=== PATIENT | male | born 1945 | race Caucasian/White ===

== ENCOUNTER 2021-03-23 14:15 | Emergency (ER) | payer OTHER ==
--- NOTE | 2021-03-23 15:05 | ED Physician Documentation ---
PD HPI HEAD INJURY - Stated complaint Stated Complaint: HEAD INJURY - Chief complaint Chief Complaint: Trauma Hd/Nk - History obtained from History obtained from: Patient - Additional information Additional information: Patient comes emergency department chief complaint of headache and neck pain after taking a fall 3 nights ago and hitting his head. He states he was walking through his yard at night when he tripped over a mcmillan and fell, striking his head on a pipe that holds a hose rack and then bounced back and hit the back of his head on the wall of his house. Patient states he did not lose consciousness but felt dizzy for about 5 minutes and had to sit on the ground during that time before he felt he could not stand up. Patient denies any neurologic deficits, Other than left eye blurred vision. The patient states that he had a cataract surgery done in the area of [place], [place], from which he just moved 2 weeks ago. The cataract surgery was approximately a month ago. He states that he does not know if something is gone wrong with the new lens in his left eye. He denies hitting his eye, And has not had any pain or discomfort otherwise in the eye. No other complaints at this time. Review of Systems Ten Systems: 10 systems reviewed and negative Constitutional: reports: Reviewed and negative Eyes: reports: Decreased vision Ears: reports: Reviewed and negative Nose: reports: Reviewed and negative Throat: reports: Reviewed and negative Cardiac: reports: Reviewed and negative Respiratory: reports: Reviewed and negative GI: reports: Reviewed and negative : reports: Reviewed and negative Skin: reports: Reviewed and negative Musculoskeletal: reports: Neck pain Neurologic: reports: Headache, Head injury. denies: LOC Psychiatric: reports: Reviewed and negative Endocrine: reports: Reviewed and negative Immunocompromised: reports: Reviewed and negative PD PAST MEDICAL HISTORY - Allergies Allergies/Adverse Reactions: Allergies Allergy/AdvReac Type Severity Reaction Status Date / Time Sulfa (Sulfonamide Allergy Unknown Verified 03/23/21 14:22 Antibiotics) PD ED PE NORMAL - Vitals Vital signs reviewed: Yes - General General: Alert and oriented X 3, No acute distress, Well developed/nourished - HEENT HEENT: PERRL, EOMI, Moist mucous membranes, Other (Tiny abrasion right superior forehead; otherwise atraumatic; Fluorescein exam is negative. No conjunctival injection or hyphema noted. No eyelid contusion or swelling.) - Neck Neck: Supple, no meningeal sign, No bony TTP, Other (No muscular tenderness.) - Cardiac Cardiac: RRR, No murmur, Strong equal pulses - Respiratory Respiratory: No respiratory distress, Clear bilaterally - Abdomen Abdomen: Soft, Non tender, Non distended - Derm Derm: Normal color, Warm and dry, No rash - Extremities Extremities: No deformity, No edema, No calf tenderness / cord - Neuro Neuro: Alert and oriented X 3, No motor deficit, No sensory deficit, Normal speech, Other (Cranial nerves II through XII are intact with the exception of some blurred vision in the left eye) - Psych Psych: Normal mood, Normal affect Results - Vitals Vitals: Vital Signs - 24 hr 03/23/21 14:22 Temperature 36.3 C L Heart Rate 80 Respiratory 18 Rate Blood Pressure 133/74 H O2 Saturation 100 Oxygen O2 Source Room air - Rads (name of study) CT head Radiology: Final report received, EMP read indepedently, See rad report (NAD) CT C-spine Radiology: Final report received, EMP read indepedently, See rad report (NAD) PD MEDICAL DECISION MAKING - ED course Complexity details: reviewed results, re-evaluated patient, considered differential, d/w patient ED course: I could not find any discernible abnormality of the patient's left eye. He was sent for CT scans of the head and neck. Departure - Departure Disposition: 01 Home, Self Care Clinical Impression: Blurred vision, left eye Closed head injury Qualifiers: Encounter type: initial encounter Qualified Code(s): S09.90XA - Unspecified injury of head, initial encounter Neck strain Qualifiers: Encounter type: initial encounter Qualified Code(s): S16.1XXA - Strain of muscle, fascia and tendon at neck level, initial encounter Condition: Stable Instructions: ED Head Injury Closed, ED Sprain Strain Neck, ED Blurred Vision Follow-Up: Keith Pierre MD [Provider Admit Priv/Credential] - Comments: Your CT scans look good. Your eye exam does not show any abnormalities, but it is very important that you call the eye clinic first thing in the morning to follow-up with an it infrastructure specialist to have your cataract surgery site checked.
--- NOTE | 2021-03-23 16:00 | CT Report ---
PROCEDURE: HEAD WO INDICATIONS: Fall, pain TECHNIQUE: Noncontrast 4.5 mm thick angled axial sections acquired from the foramen magnum to the vertex. For r adiation dose reduction, the following was used: automated exposure control, adjustment of mA and/or kV according to patient size. COMPARISON: None. FINDINGS: Image quality: Excellent. CSF spaces: Basal cisterns are patent. No extra-axial fluid collections. Ventricles are normal in size and shape. Brain: No midline shift. No intracranial masses or hemorrhage. Vang-white matter interface is norm al. Global cerebral volume loss and chronic microvascular ischemic changes. Skull and face: Calvarium and visualized facial bones are intact, without suspicious lesions. Sinuses: Visualized sinuses and mastoids are clear. IMPRESSION: No acute intracranial abnormality. Reviewed by: Eddie Ro MD on 03/23/2021 2:59 PM [facility] Approved by: Eddie Ro MD on 03/23/2021 2:59 PM [facility] Station ID: [id number]
--- NOTE | 2021-03-23 16:06 | CT Report ---
PROCEDURE: CERVICAL SPINE WO INDICATIONS: fall/pain TECHNIQUE: Noncontrast 3 mm thick sections acquired from the skull base to the T4 level. Sagittal and coronal r eformats were then constructed. For radiation dose reduction, the following was used: automated exp osure control, adjustment of mA and/or kV according to patient size. COMPARISON: None. FINDINGS: Postsurgical changes of C5 corpectomy and strut graft placement with ACDF from C4 through C6. Hardwar e appears intact with no abnormal lucency surrounding the hardware. Straightening of usual cervical l ordosis. No listhesis. Vertebral body heights are maintained. No evidence of cervical spine fracture. Facets are congruent without subluxation or dislocation. Prevertebral and paraspinous soft tissues a re normal. IMPRESSION: No CT evidence of acute or metastatic cervical spine injury. Reviewed by: Eddie Ro MD on 03/23/2021 3:05 PM [facility] Approved by: Eddie Ro MD on 03/23/2021 3:05 PM [facility] Station ID: [id number]
[2021-03-23 16:25] VITALS: BP 110/59
== END 2021-03-23 16:25 | disposition home or self-care (01) ==
LOC: ED 14:15
DX: S09.90XA Unspecified injury of head, initial encounter (principal); S16.1XXA Strain of muscle, fascia and tendon at neck level, initial encounter; S00.81XA Abrasion of other part of head, initial encounter; H53.8 Other visual disturbances; W01.198A Fall on same level from slipping, tripping and stumbling with subsequent striking against other object, initial encounter; Y93.01 Activity, walking, marching and hiking; Y92.007 Garden or yard of unspecified non-institutional (private) residence as the place of occurrence of the external cause
CPT/HCPCS: 99282; 99284

== ENCOUNTER 2021-06-21 21:08 | Outpatient (CLI) | payer OTHER | END 2021-06-21 21:09 | disposition critical access hospital (66) | LOC: EMS 21:08 | DX: S01.81XA Laceration without foreign body of other part of head, initial encounter (principal); W01.0XXA Fall on same level from slipping, tripping and stumbling without subsequent striking against object, initial encounter; Y92.481 Parking lot as the place of occurrence of the external cause | CPT/HCPCS: A0425; A0429 ==

== ENCOUNTER 2021-06-21 21:32 | Emergency (ER) | payer OTHER ==
--- NOTE | 2021-06-21 23:04 | CT Report ---
PROCEDURE: CERVICAL SPINE WO INDICATIONS: fall, head/face/neck pain TECHNIQUE: Noncontrast 3 mm thick sections acquired from the skull base to the T4 level. Sagittal and coronal r eformats were then constructed. For radiation dose reduction, the following was used: automated exp osure control, adjustment of mA and/or kV according to patient size. COMPARISON: None. FINDINGS: Image quality: Excellent. Bones: No fractures or dislocations. Anterior fusion hardware at C4-C6. Visualized superior ribs ar e intact. Soft tissues: Prevertebral soft tissues are normal in thickness. No paravertebral hematomas. No ap ical pneumothoraces. IMPRESSION: No fracture. Reviewed by: Keyonna Mason MD on 06/21/2021 11:03 PM [facility] Approved by: Keyonna Mason MD on 06/21/2021 11:03 PM [facility] Station ID: [id number]
--- NOTE | 2021-06-21 23:04 | CT Report ---
PROCEDURE: HEAD WO INDICATIONS: fall, head/face/neck pain TECHNIQUE: Noncontrast 4.5 mm thick angled axial sections acquired from the foramen magnum to the vertex. For r adiation dose reduction, the following was used: automated exposure control, adjustment of mA and/or kV according to patient size. COMPARISON: None. FINDINGS: Image quality: Excellent. CSF spaces: Basal cisterns are patent. No extra-axial fluid collections. Ventricles are normal in size and shape. Brain: No midline shift. No intracranial masses or hemorrhage. Vang-white matter interface is norm al. Skull and face: Calvarium and visualized facial bones are intact, without suspicious lesions. Sinuses: Visualized sinuses and mastoids are clear. IMPRESSION: No acute intracranial abnormality. Reviewed by: Keyonna Mason MD on 06/21/2021 11:02 PM PST Approved by: Keyonna Mason MD on 06/21/2021 11:02 PM PST Station ID: [id number]
--- NOTE | 2021-06-21 23:05 | CT Report ---
PROCEDURE: MAXILLOFACIAL WO INDICATIONS: fall, head/face/neck pain TECHNIQUE: Noncontrast 1.5 mm thick axial images acquired from the mandible through the frontal sinuses, with co alice and sagittal reformatting. For radiation dose reduction, the following was used: automated ex posure control, adjustment of mA and/or kV according to patient size. COMPARISON: None. FINDINGS: Image quality: Excellent. Bones and teeth: Orbital freire are intact. Sinus freire show no fracture or deformity. Nasal bones and septum are intact. Visualized portions of the mandible demonstrate no fractures or subluxation. Zygomatic arches are intact. Pterygoid plates are intact. Visualized portions of the skull base an d auditory canals are intact. Sinuses: Paranasal sinuses are aerated, without fluid levels, mucosal thickening, or mucoceles. Mas toid air cells are aerated. Soft tissues: No edema, masses, or fluid collections. No enlarged lymph nodes. No soft tissue lace rations or debris. Vascular: Visualized vascular structures appear normal in the absence of contrast. Bony vascular fo ramina and canals are intact. IMPRESSION: No fracture. Reviewed by: Keyonna Mason MD on 06/21/2021 11:04 PM [facility] Approved by: Keyonna Mason MD on 06/21/2021 11:04 PM [facility] Station ID: [id number]
--- NOTE | 2021-06-22 00:07 | ED Physician Documentation ---
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 No: LOC, AMS, Amnesia, Nausea / vomiting Contributing factors: No: Anticoagulated, Intoxicated Similar symptoms before: Has not had sx before Recently seen: Not recently seen - Additional information Additional information: patient was walking to his car in a dark parking lot, tripped going down a stair due to poor lighting, causing him to fall forward. struck head on ground. he denies LOC, c/o headache and neck pain, sustained forehead laceration. He says he is up to date on tetanus immunization Review of Systems Eyes: reports: Reviewed and negative Ears: reports: Reviewed and negative Cardiac: reports: Reviewed and negative Respiratory: reports: Reviewed and negative GI: reports: Reviewed and negative Skin: reports: Laceration (s) Musculoskeletal: reports: Neck pain. denies: Back pain, Extremity pain, Joint pain, Extremity swelling, Joint swelling, Pain with weight bearing Neurologic: reports: Headache, Head injury. denies: Generalized weakness, Focal weakness, Numbness, Altered mental status, LOC PD PAST MEDICAL HISTORY - Past Medical History Past Medical History: Yes Cardiovascular: High cholesterol, [place] Endocrine/Autoimmune: Type 2 diabetes GI: GERD HEENT: Chronic vision loss, Other Psych: Depression Musculoskeletal: Osteoarthritis - Past Surgical History Past Surgical History: Yes Ortho: Knee replacement Cardiovascular: CABG, Coronary stent HEENT: Cataracts - Present Medications Home Medications: Ambulatory Orders Medication Instructions Recorded Confirmed Home Medications Unobtainable 06/21/21 06/21/21 [HOME MEDICATIONS UNOBTAINABLE] - Allergies Allergies/Adverse Reactions: Allergies Allergy/AdvReac Type Severity Reaction Status Date / Time Sulfa (Sulfonamide Allergy Unknown Verified 06/21/21 21:37 Antibiotics) - Social History Does the pt smoke?: No Smoking Status: Never smoker Does the pt drink ETOH?: No Does the pt have substance abuse?: No - Immunizations Immunizations are current?: Yes PD ED PE NORMAL - Vitals Vital signs reviewed: Yes - General General: Alert and oriented X 3, No acute distress, Well developed/nourished - HEENT HEENT: PERRL, EOMI - Cardiac Cardiac: RRR, No murmur - Respiratory Respiratory: No respiratory distress, Clear bilaterally - Abdomen Abdomen: Soft, Non tender - Extremities Extremities: No deformity, No tenderness to palpate, Normal ROM s pain - Neuro Neuro: Alert and oriented X 3, guest 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, No motor deficit, No sensory deficit, Normal speech Eye Opening: Spontaneous Motor: Obeys Commands Verbal: Oriented GCS Score: 15 PD ED PE EXPANDED - HEENT HEENT Visual: 1 - laceration (1 cm laceration with surrounding swelling, TTP) Results - Vitals Vitals: Vital Signs - 24 hr 06/21/21 06/21/21 06/22/21 21:37 23:33 01:00 Temperature 36.2 C L Heart Rate 78 79 80 Respiratory 15 15 16 Rate Blood Pressure 132/77 H 142/77 H 166/81 H O2 Saturation 97 97 98 06/22/21 02:19 Temperature 36.3 C L Heart Rate 72 Respiratory 16 Rate Blood Pressure 144/79 H O2 Saturation 99 Oxygen O2 Source Room air - Rads (name of study) CT head Radiology: Prelim report reviewed, See rad report CT cervical spine Radiology: Prelim report reviewed, See rad report CT facial bones Radiology: Prelim report reviewed, See rad report Procedures - Laceration (location) Scalp left Length in cm: 1 Wound type: Linear, Into subcut fat, Clean Anesthesia: Lidocaine 1% Wound preparation: Chlorhexadine, Irrigated copiously NS, Wound explored Skin layer closure: Nylon, Interrupted, Size #-0 - enter number (4-0), Sutures - enter # (2) Other: Patient tolerated well, No complications, Neurovascular intact, Tetanus UTD PD MEDICAL DECISION MAKING - ED course Complexity details: reviewed results, re-evaluated patient, considered different ial, d/w patient ED course: after result of CT cervical spine available, I removed cervical collar at 00:07. Departure - Departure Disposition: 01 Home, Self Care Clinical Impression: Fall Qualifiers: Encounter type: initial encounter Qualified Code(s): W19.XXXA - Unspecified fall, initial encounter Scalp laceration Qualifiers: Encounter type: initial encounter Qualified Code(s): S01.01XA - Laceration without foreign body of scalp, initial encounter Condition: Good Instructions: ED Head Injury Closed, ED Laceration Scalp Stitch Or Stap Follow-Up: SHEILA HYMAN MD [Primary Care Provider] - Comments: Follow up with your primary care provider in one week for removal of the stitches. TWO stitches were placed in the laceration of your scalp/forehead. Discharge Date/Time: 06/22/21 02:19
[2021-06-22] MEDS ORDERED: LIDOCAINE 2% 10 ML MDV SUBQ ONE (00:11)
[2021-06-22] MEDS ORDERED: lidocaine 1% 20 ML MDV SUBQ STA (00:15)
[2021-06-22] MEDS ORDERED: BACITRACIN ZINC OINT 1 PACKET TOP STA (01:59)
[2021-06-22 02:20] VITALS: BP 144/79
== END 2021-06-22 02:19 | disposition home or self-care (01) ==
LOC: EDUNIT# → EDBD → ED 21:32
DX: S01.01XA Laceration without foreign body of scalp, initial encounter (principal); W10.8XXA Fall (on) (from) other stairs and steps, initial encounter; Y93.01 Activity, walking, marching and hiking; Y92.481 Parking lot as the place of occurrence of the external cause
CPT/HCPCS: 12001; 99282; 99284

== ENCOUNTER 2022-02-11 11:58 | Emergency (ER) | payer OTHER ==
[2022-02-11] MEDS ORDERED: KETOROLAC 30 MG/ML VIAL IVP STA (12:13)
[2022-02-11] MEDS ORDERED: HYDROmorphone 1 MG/ML CARPUJECT IVP STA (12:13)
[2022-02-11] MEDS ORDERED: ONDANSETRON 4 MG/2 ML VIAL IVP STA (12:13)
[2022-02-11 12:15] LABS: BASOPHILS # (AUTO) 0.1 10^3/uL (0.0-0.1); BASOPHILS % (AUTO) 0.4 %; EOSINOPHILS # (AUTO) 0.1 10^3/uL (0.0-0.7); HCT - HEMATOCRIT 42.9 % (42.0-52.0); HGB - HEMOGLOBIN 13.7 g/dL (14.0-18.0); LYMPHOCYTES # (AUTO) 1.7 10^3/uL (1.5-3.5); LYMPHOCYTES % (AUTO) 11.3 %; MEAN CORPUSCULAR HEMOGLOBIN 28.9 pg (27.0-31.0); MEAN CORPUSCULAR HGB CONC 31.9 g/dL (32.0-36.0); MEAN CORPUSCULAR VOLUME 90.5 fL (80.0-94.0); MEAN PLATELET VOLUME 10.2 fL (7.4-11.4); MONOCYTES # (AUTO) 1.2 10^3/uL (0.0-1.0); MONOCYTES % (AUTO) 8.1 %; NEUTROPHILS # (AUTO) 11.5 10^3/uL (1.5-6.6); NEUTROPHILS % (AUTO) 78.7 %; PLT - PLATELET COUNT 564 10^3/uL (130-450); RED BLOOD COUNT 4.74 10^6/uL (4.70-6.10); RED CELL DISTRIBUTION WIDTH 14.9 % (12.0-15.0); WHITE BLOOD COUNT 14.6 x10^3/uL (4.8-10.8)
--- NOTE | 2022-02-11 12:15 | ED Physician Documentation ---
PD HPI ABD PAIN - Stated complaint Stated Complaint: RT SIDE PX - Chief complaint Chief Complaint: Abd Pain - History obtained from History obtained from: Patient - History of Present Illness Timing - onset: How many hours ago (4) Timing - duration: Hours (4) Timing - details: Abrupt onset Pain level max: 9 Pain level now: 8 Quality: Sharp, Pain Location: RLQ. No: All over / everywhere, RUQ, Epigastric, LUQ, Periumbilical Radiation: Right flank Improved by: No: Eating, Laying still, Vomiting, BM, Position, Meds Worsened by: No: Eating, Moving, Breathing, Position, Palpation Associated symptoms: No: Fever, Nausea, Vomiting, Hematemesis, Diarrhea, Constipation, Melena, Hematochezia, Dysuria, Hematuria - Additional information Additional information: Patient is a 76-year-old male who presents to the emergency department with right flank pain that started this morning at 8 AM. He states that it woke him up out of sleep. Does have a history of kidney stones. He states that this pain is sharp. Nothing seems to make it better or worse. He took Tylenol without relief. He has nausea but no vomiting. No diarrhea. No constipation. No fevers. No chills. No urinary symptoms. Review of Systems Ten Systems: 10 systems reviewed and negative Constitutional: denies: Fever, Chills Respiratory: denies: Cough GI: denies: Vomiting, Diarrhea, Hematemesis, Bloody / black stool : denies: Dysuria, Hematuria Skin: denies: Rash Musculoskeletal: denies: Neck pain, Back pain Neurologic: denies: Headache PD PAST MEDICAL HISTORY - Past Medical History Past Medical History: Yes Cardiovascular: High cholesterol, [place] Endocrine/Autoimmune: Type 2 diabetes GI: GERD HEENT: Chronic vision loss, Other Psych: Depression Musculoskeletal: Osteoarthritis - Past Surgical History Past Surgical History: Yes Ortho: Knee replacement Cardiovascular: CABG, Coronary stent HEENT: Cataracts - Present Medications Home Medications: Ambulatory Orders Medication Instructions Recorded Confirmed Ondansetron Odt [Zofran] 4 mg TL Q6H PRN #10 tablet 02/11/22 Oxycodone HCl/Acetaminophen 1 - 2 each PO Q6H PRN #20 tablet 02/11/22 [Percocet 5-325 mg Tablet] Tamsulosin [Flomax] 0.4 mg PO DAILY #14 cap 02/11/22 - Allergies Allergies/Adverse Reactions: Allergies Allergy/AdvReac Type Severity Reaction Status Date / Time Sulfa (Sulfonamide Allergy Unknown Verified 02/11/22 12:05 Antibiotics) - Social History Does the pt smoke?: No Smoking Status: Never smoker Does the pt drink ETOH?: No Does the pt have substance abuse?: No - Immunizations Immunizations are current?: Yes PD ED PE NORMAL - Vitals Vital signs reviewed: Yes - General General: Alert and oriented X 3, No acute distress - HEENT HEENT: PERRL, Moist mucous membranes - Neck Neck: Supple, no meningeal sign - Cardiac Cardiac: RRR - Respiratory Respiratory: No respiratory distress, Clear bilaterally - Abdomen Abdomen: Soft, Non tender, Non distended - Back Back: No spinal TTP, Other (Mild right flank tenderness. Mild right CVA tenderness.) - Derm Derm: Warm and dry - Extremities Extremities: No edema, No calf tenderness / cord - Neuro Neuro: Alert and oriented X 3 - Psych Psych: Normal mood, Normal affect Results - Vitals Vitals: Vital Signs - 24 hr 02/11/22 02/11/22 02/11/22 12:02 12:04 14:04 Temperature 36.7 C 36.7 C 36.5 C Heart Rate 94 94 76 Respiratory 16 16 16 Rate Blood Pressure 147/77 H 147/77 H 130/74 O2 Saturation 98 98 100 Oxygen O2 Source Room air - Labs Labs: Laboratory Tests 02/11/22 02/11/22 02/11/22 12:11 12:11 13:41 WBC 14.6 H RBC 4.74 Hgb 13.7 L Hct 42.9 MCV 90.5 MCH 28.9 MCHC 31.9 L RDW 14.9 Plt Count 564 H MPV 10.2 Neut # (Auto) 11.5 H Lymph # (Auto) 1.7 Edmunds # (Auto) 1.2 H Eos # (Auto) 0.1 Baso # (Auto) 0.1 Absolute Nucleated RBC 0.00 Nucleated RBC % 0.0 Sodium 140 Potassium 4.9 Chloride 104 Carbon Dioxide 27 Anion Gap 9.0 BUN 31 H Creatinine 2.2 H Estimated GFR (MDRD) 29 L Glucose 253 H Calcium 9.6 Total Bilirubin 0.7 AST 17 ALT 18 Alkaline Phosphatase 80 Total Protein 7.8 Albumin 4.3 Globulin 3.5 Albumin/Globulin Ratio 1.2 Lipase 41 Urine Color YELLOW Urine Clarity CLEAR Urine pH 6.0 Ur Specific Rog[place] 1.020 Urine Protein TRACE Urine Glucose (UA) 500 H Urine Ketones NEGATIVE Urine Occult Blood NEGATIVE Urine Nitrite NEGATIVE Urine Bilirubin NEGATIVE Urine Urobilinogen 0.2 (NORMAL) Ur Leukocyte Esterase NEGATIVE Ur Microscopic Review NOT INDICATED Urine Culture Comments NOT INDICATED - Rads (name of study) CT abdomen pelvis Radiology: Final report received, EMP read contemporaneously, See rad report PD MEDICAL DECISION MAKING - ED course Complexity details: reviewed results, re-evaluated patient, considered differential, d/w patient, d/w family ED course: Patient is a 76-year-old male who presents with right-sided flank pain. Has a 9 mm right ureteral stone. Pain well controlled. No fevers. No evidence of infection. No nausea or vomiting. Will place on pain medication for home and have him follow-up with urology. Patient will return if he worsens. Patient counseled regarding signs and symptoms for which I believe and urgent re- evaluation would be necessary. Patient with good understanding of and agreement to plan and is comfortable going home at this time This document was made in part using voice recognition software. While efforts are made to proofread this document, sound alike and grammatical errors may occur. Departure - Departure Disposition: 01 Home, Self Care Clinical Impression: Ureteral stone Condition: Good Instructions: ED Stone Renal W Colic Follow-Up: SHEILA HYMAN MD [Primary Care Provider] - Criselda Davison MD [Provider Admit Priv/Credential] - Scott Kiran MD [Physician No Access] - SAVANNAH ORNELAS [Physician No Access] - ISHA SHARMA MD [Physician No Access] - Prescriptions: Tamsulosin [Flomax] 0.4 mg PO DAILY #14 cap Oxycodone HCl/Acetaminophen [Percocet 5-325 mg Tablet] 1 - 2 each PO Q6H PRN #20 tablet PRN Reason: pain Ondansetron Odt [Zofran] 4 mg TL Q6H PRN #10 tablet PRN Reason: Nausea / Vomiting Comments: You have a 9 mm obstructing right ureteropelvic junction calculus. This will need follow-up with urology as that may necessitate removal and lithotripsy. [facility] out [facility] you [facility] be [facility]. Your prescriptions were sent to [facility] in [place]. If you develop worsening pain, fevers or other new or worrisome symptoms, I would recommend that you go directly to a facility with urology such as [facility] or [place]. I am prescribing a short course of narcotic pain medication for you. These are potentially dangerous and addictive medications that should be used carefully. These medications may constipate you. Take an [id number] stool softener (docusate) twice daily with plenty of water while taking these medications. If you go 24 hours without a bowel movement, take [id number] miralax, per package instructions. Do not drink or drive while taking these medications. If you received narcotic or sedating medications while in the emergency department, do not drive for 24 hours. Store this medication in a safe, secure place and out of reach of children. It is a violation of federal law to give or sell this medication to another person or to use in a manner other than prescribed. The ED will not refill narcotic prescriptions, including prescriptions lost or stolen. To dispose of unwanted medications: 1. [facility] at [address] in [place] has a medication drop box. They accept prescription medications (in pill form) Sunday through Sunday 9:00 a.m. to 5:00 p.m. 2. The [facility] [place] [employer] accepts prescription medications (in pill form only) for disposal year round. Call for more information. 3. Contact the [facility] for the next [facility] sponsored prescription drug collection event. , [phone], or [phone]; IMPRESSION: 1. 9 mm obstructing right ureteropelvic junction calculus causing mild hydronephrosis and moderate perinephric inflammation. 2. Several nonobstructing intrarenal calculi retained bilaterally. 3. Probable cholelithiasis. 4. Moderate prostatomegaly. 5. Ectatic left common iliac artery. Consider surveillance. Discharge Date/Time: 02/11/22 14:40
[2022-02-11 12:28] LABS: ALBUMIN 4.3 g/dL (3.2-5.5); ALBUMIN/GLOBULIN RATIO 1.2 (1.0-2.2); BILIRUBIN,TOTAL 0.7 mg/dL (0.2-1.0); CALCIUM 9.6 mg/dL (8.5-10.3); CREATININE 2.2 mg/dL (0.6-1.2); POTASSIUM 4.9 mmol/L (3.5-5.0); TOTAL PROTEIN 7.8 g/dL (6.7-8.2)
[2022-02-11 14:05] LABS: BILIRUBIN,URINE NEGATIVE (NEGATIVE); GLUCOSE, URINE (UA) 500 mg/dL (NEGATIVE); KETONES,URINE (UA) NEGATIVE (NEGATIVE); LEUKOCYTE ESTERASE, URINE NEGATIVE (NEGATIVE); NITRITE,URINE NEGATIVE (NEGATIVE); OCCULT BLOOD,URINE NEGATIVE (NEGATIVE); PROTEIN,URINE TRACE mg/dL (NEGATIVE); UROBILINOGEN,URINE 0.2 (NORMAL) E.U./dL (NORMAL)
[2022-02-11 14:07] LABS: CLARITY,URINE CLEAR (CLEAR)
--- NOTE | 2022-02-11 14:20 | CT Report ---
PROCEDURE: ABDOMEN/PELVIS WO INDICATIONS: R flank pain, h/o renal stones TECHNIQUE: Noncontrast 5 mm thick sections acquired from the diaphragms to the symphysis. 5 mm coronal and sagi ttal reformats were then performed. For radiation dose reduction, the following was used: automated exposure control, adjustment of mA and/or kV according to patient size. COMPARISON: None. FINDINGS: Image quality: Excellent. ABDOMEN: Lung bases: Clear lung bases. Mild cardiomegaly. Median sternotomy and mitral annuloplasty present. N o hiatal hernia. Solid organs: Mild right-sided hydronephrosis through the renal pelvis. At the ureteropelvic junction , there is a 9 mm stone with Hounsfield units of 505. There is moderate perinephric inflammation. The re are 5 other nonobstructing right intrarenal calculi, the largest measuring 5 mm. There are 3 nonob structing left intrarenal calculi. Small bilateral cortical renal cysts. The ureters are both decompr essed. The unenhanced appearance of the liver, spleen, adrenal glands, and pancreas is normal. The gallbladd er contains trace dependent material near the neck. Normal wall thickness. Biliary system is nondilat ed. Peritoneum and bowel: Unenhanced stomach and bowel loops demonstrate normal wall thickness and calib er. Occasional diffuse colonic diverticulosis. No free fluid or air. Nodes and vessels: No retroperitoneal or mesenteric adenopathy by size criteria. Aorta and inferior vena cava are normal in caliber. Miscellaneous: No ventral hernias. PELVIS: Genitourinary: Bladder wall thickness is normal. No bladder calculi. Moderate prostatomegaly. Miscellaneous: No inguinal hernias or adenopathy. Proximal common iliac vessels demonstrate heavy c alcification. The distal common iliac artery on the left is ectatic measuring 2.1 cm in AP diameter. Bones: No suspicious bony lesions. No vertebral body compression fractures. Bridging osteophytosis in the lower thoracic spine. Degenerative disc disease at L5-S1. IMPRESSION: 1. 9 mm obstructing right ureteropelvic junction calculus causing mild hydronephrosis and moderate pe rinephric inflammation. 2. Several nonobstructing intrarenal calculi retained bilaterally. 3. Probable cholelithiasis. 4. Moderate prostatomegaly. 5. Ectatic left common iliac artery. Consider surveillance. Reviewed by: Sanjana Bergman MD on 02/11/2022 1:18 PM MATT Approved by: Sanjana Bergman MD on 02/11/2022 1:18 PM MATT Station ID: [id number]
[2022-02-11] MEDS ORDERED: oxyCODONE 5 MG TABLET PO STA (14:29)
[2022-02-11 14:36] VITALS: BP 130/74
== END 2022-02-11 14:40 | disposition home or self-care (01) ==
LOC: ED 11:58
DX: N13.2 Hydronephrosis with renal and ureteral calculous obstruction (principal)
CPT/HCPCS: 36415; 74176; 80053; 81003; 83690; 85025; 96374; 96375; 99284; A9270; J1170; 81001; 87086

== ENCOUNTER 2023-07-14 02:16 | Emergency (ER) | payer OTHER ==
--- NOTE | 2023-07-14 02:26 | ED Physician Documentation ---
PD HPI MALE - Stated complaint Stated Complaint: - History obtained from History obtained from: Patient - Additional information Additional information: HPI from patient. 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 This was associated with mild burning dysuria. He was advised by a medical advice hotline to go to the emergency department for evaluation. Patient has history of kidney stones, but those had been associated with severe flank pain which she is not having at this time. Patient notes that he urinated one more time just before coming to the emergency department and at that point, the urine did not have any visible blood in it. Review of Systems Constitutional: denies: Fever GI: denies: Abdominal Pain, Nausea, Vomiting : reports: Dysuria, Hematuria. denies: Frequency PD PAST MEDICAL HISTORY - Past Medical History Cardiovascular: High cholesterol, MS Endocrine/Autoimmune: Type 2 diabetes GI: GERD HEENT: Chronic vision loss, Other Psych: Depression Musculoskeletal: Osteoarthritis - Past Surgical History Past Surgical History: Yes Ortho: Knee replacement Cardiovascular: CABG, Coronary stent HEENT: Cataracts - Present Medications Home Medications: Ambulatory Orders Medication Instructions Recorded Confirmed Ondansetron Odt [Zofran] 4 mg TL Q6H PRN #10 tablet 02/11/22 07/14/23 Oxycodone HCl/Acetaminophen 1 - 2 each PO Q6H PRN #20 tablet 02/11/22 07/14/23 [Percocet 5-325 mg Tablet] Tamsulosin [Flomax] 0.4 mg PO DAILY #14 cap 02/11/22 07/14/23 - Allergies Allergies/Adverse Reactions: Allergies Allergy/AdvReac Type Severity Reaction Status Date / Time Sulfa (Sulfonamide Allergy Unknown Verified 02/11/22 12:05 Antibiotics) - Social History Does the pt smoke?: No Smoking Status: Never smoker Does the pt drink ETOH?: No Does the pt have substance abuse?: No - Immunizations Immunizations are current?: Yes PD ED PE NORMAL - Vitals Vital signs reviewed: Yes - General General: Alert and oriented X 3, No acute distress, Well developed/nourished - Abdomen Abdomen: Soft, Non tender - Back Back: No CVA TTP Results - Vitals Vitals: Oxygen O2 Source Room air - Labs Labs: Laboratory Tests 07/14/23 02:55 Urine Color YELLOW Urine Clarity CLEAR Urine pH 6.0 Ur Specific [place] 1.020 Urine Protein NEGATIVE Urine Glucose (UA) NEGATIVE Urine Ketones NEGATIVE Urine Occult Blood MODERATE H Urine Nitrite NEGATIVE Urine Bilirubin NEGATIVE Urine Urobilinogen 0.2 (NORMAL) Ur Leukocyte Esterase NEGATIVE Urine RBC 11-25 H Urine WBC 0-3 Ur Squamous Epith Cells RARE Squamous Urine Bacteria Rare Ur Microscopic Review INDICATED Urine Culture Comments NOT INDICATED PD Medical Decision Making - ED course Complexity details: reviewed results, re-evaluated patient, considered differential, d/w patient ED course: hematuria on UA (6-10 RBC/hpf) but no other abnormalities including no nitrites nor leukocytes; UTI unlikely given these results. Patient has h/o kidney stones. Although he has no pain tonight (except mild burning dysuria which is likely due to urethral irritation from RBC), irritation to ureter(s) from calculus remains on differential. Differential also includes, but not limited to, malignancy. I discussed results and differential concerns w/ patient. He will likely need testing to r/o malignancy (CT IVP, cystoscopy), but this can take place in outpatient setting at discretion of his urologist. Return precautions reviewed Departure - Departure Disposition: 01 Home, Self Care Clinical Impression: Hematuria Condition: Good Instructions: ED Hematuria Comments: The only abnormality on the urinalysis is the presence of blood; there were no other abnormalities and thus urinary tract infection is a highly unlikely cause of the blood in the urine. Given your history of kidney stones, a likely explanation at this point is a kidney stone that is causing some irritation to the ureter which, in turn, could account for the bleeding. You might have a stone that is still stuck in the kidney and/or ureter (if it is not causing obstruction, then the lack of flank pain would be expected), or it is possible that you passed a kidney stone and that this caused the bleeding. As we discussed, another concern/possible cause of blood in the urine would be malignancy (cancer). For this particular reason, it is very important that you follow-up with your urologist even if you do not have any pain and/or recurrence of visible blood in the urine. At the discretion of your urologist, further testing might be indicated (such as a CT scan of your abdomen followed by cystoscopy) as a means of ruling out concerning causes of the blood in your urine. Certainly, if your symptoms worsen, or if you develop new/concerning signs/symptoms (such as flank pain, back pain, fever, inability to urinate), you can return to the emergency department for reevaluation. Discharge Date/Time: 07/14/23 04:40
[2023-07-14 03:15] LABS: BILIRUBIN,URINE NEGATIVE (NEGATIVE); GLUCOSE, URINE (UA) NEGATIVE (NEGATIVE); KETONES,URINE (UA) NEGATIVE (NEGATIVE); LEUKOCYTE ESTERASE, URINE NEGATIVE (NEGATIVE); NITRITE,URINE NEGATIVE (NEGATIVE); OCCULT BLOOD,URINE MODERATE (NEGATIVE); PROTEIN,URINE NEGATIVE (NEGATIVE); UROBILINOGEN,URINE 0.2 (NORMAL) E.U./dL (NORMAL)
[2023-07-14 03:36] LABS: BACTERIA,URINE Rare /HPF (None Seen); CLARITY,URINE CLEAR (CLEAR); SQUAMOUS EPITHELIAL CELL,UR RARE Squamous (<= Few); WBC,URINE 0-3 /HPF (0-3)
[2023-07-14 04:57] VITALS: BP 125/72; O2SAT 97
== END 2023-07-14 04:40 | disposition home or self-care (01) ==
LOC: ED 02:16
DX: R31.9 Hematuria, unspecified (principal)
CPT/HCPCS: 81001; 81003; 87086; 99283